=== PATIENT | female | born 1945 | race Asian ===

== ENCOUNTER 2016-10-08 14:14 | Emergency (ER) | payer MEDICAID ==
[~2016-10-08] VITALS: Ht 157.5 cm; Wt 85.0 kg
[~2016-10-08 14:14] MED LIST: ASPI325T2 PO; ATOR10TA PO; COR6 PO; GABA-531 PO; ISOS60TA PO; LEVO100T PO; LOSA1TAB37 PO; OMEP20TA15 PO; ZOLP5TAB2 PO
[2016-10-08] MEDS ORDERED: NITROGLYCERIN OINT 1GM/INCH UDPKT TD STA (14:38)
[2016-10-08 14:40] VITALS: BP 163/121
[2016-10-08] MEDS ORDERED: CLONIDINE 0.2MG TABLET PO ONE (14:45)
[2016-10-08 14:56] LABS: BASOPHILS % 0.5 % (0.0-2.0); EOSINOPHILS % 3.6 % (0.0-5.0); HEMATOCRIT. 37.3 % (36.0-48.0); HEMOGLOBIN. 12.1 g/dL (12.0-16.0); LYMPHOCYTES % 47.7 % (20.0-50.0); MEAN CORPUSCULAR HEMOGLOBIN 26.5 pg (28.0-32.0); MEAN CORPUSCULAR HGB CONC 32.4 g/dL (31.0-37.0); MEAN CORPUSCULAR VOLUME 81.9 fL (81.0-99.0); MEAN PLATELET VOLUME 7.7 fl (7.4-10.4); MONOCYTES % 6.2 % (2.0-8.0); PLATELET 201 x1000/uL (130-400); RED BLOOD CELL COUNT 4.55 mill/uL (4.2-5.4); RED CELL DISTRIBUTION WIDTH 16.4 % (11.6-14.6); WHITE BLOOD COUNT 12.4 x1000/uL (4.5-11.0)
[2016-10-08 15:04] LABS: ALBUMIN 3.2 g/dL (3.4-5.0); ANION GAP 15; CALCIUM 8.7 mg/dL (8.5-10.1); CARBON DIOXIDE 23 mEq/L (21-32); CHLORIDE 106 mEq/L (98-107); INDEX HEMOLYSI 1 (1-3); INDEX ICTERIC 1 (1-4); INDEX LIPEMIC 1 (1-3)
[2016-10-08 15:14] LABS: D-DIMER 5.69 mg/L FEU (<0.50); PARTIAL THROMBOPLASTIN TIME 26.9 sec (24.0-34.0); PROTHROMBIN TIME 10.7 sec
[2016-10-08 15:18] LABS: ALANINE AMINOTRANSFERASE 10 IU/L (13-61); NT PRO B-TYPE NATRIURETIC PEP 1122 pg/mL (5-125); UREA NITROGEN BLOOD 43 mg/dL (7-21); eGFR 17 mL/min (>60)
[2016-10-08 15:21] LABS: TROPONIN I 0.45 ng/mL (0.00-0.04)
== END 2016-10-08 16:32 | disposition short-term general hospital (02) ==
LOC: ER 14:19
DX: I21.3 ST elevation (STEMI) myocardial infarction of unspecified site (principal); I10 Essential (primary) hypertension; E78.00 Pure hypercholesterolemia, unspecified; I25.10 Atherosclerotic heart disease of native coronary artery without angina pectoris; I48.91 Unspecified atrial fibrillation; K21.9 Gastro-esophageal reflux disease without esophagitis; E05.90 Thyrotoxicosis, unspecified without thyrotoxic crisis or storm; Z95.5 Presence of coronary angioplasty implant and graft; Z88.0 Allergy status to penicillin; Z79.01 Long term (current) use of anticoagulants
CPT/HCPCS: 36415; 71010; 78582; 80053; 83880; 84484; 85025; 85379; 85610; 85730; 93005; 99291; A9540; A9558; Z7610